=== PATIENT | female | born 2000 | race Caucasian/White ===

== ENCOUNTER 2021-10-06 16:11 | Emergency (ER) | payer OTHER, SELFPAY ==
[2021-10-06 16:13] VITALS: BP 134/89; PULSE 85; RESP 14; TEMP 36.6; O2SAT 98; BMI 25.2
--- NOTE | 2021-10-06 16:43 | EX.ED.VIS.HA ---
HPI History of Present Illness Chief Complaint: Headache Informant: patient Onset/Context/Timing Onset: Yesterday Context: Sudden Timing: Continuous Quality -Headache: Positive for Throbbing and Burning Location: Right occipital/parietal area Worsened by: Bending forward and turning head Relieved by: Sitting Associated Symptoms/Injury Associated Symptoms: Positive for Nausea; Negative for Fever, Vomiting, Sore Throat, Sinus Pressure, Numbness, Tingling, Preceding Aura, Visual Changes, Blurred Vision, Photophobia and Visual Loss Injury - VU: Negative for Direct Trauma Narrative Narrative: Patient presents with a headache that began yesterday. Patient states she was at a track meet throwing javelin when her headache began. Patient states it began right after she threw the javelin. Patient states it began rather suddenly. Patient states it is over the right occipital area. Patient describes the pain as throbbing and burning. Patient states it is worse whenever she bends forward and turns her head to the side. Patient states it is better with sitting. Patient admits to a couple episodes of very mild nausea. Patient denies any vomiting. Patient denies any fevers or chills. Patient denies any visual changes or scotoma. Patient denies any preceding auras. PFSH PFSH Medical History no medical history no medical history Home Medications cetirizine [Zyrtec] 5 mg PO DAILY 10/06/21 [History Last Taken Unknown] escitalopram oxalate [Lexapro] 20 mg PO DAILY 10/06/21 [History Last Taken Unknown] norgestimate-ethinyl estradiol [Ortho Tri-Cyclen (21)] 1 tab PO DAILY 10/06/21 [History Last Taken Unknown] Allergy/AdvReac Type Severity Reaction Status Date / Time No Known Allergies Allergy Verified 10/06/21 16:14 Social History Smoking Status: Never smoker ROS ROS ED Constitutional Constitutional ED: Denies chills or fever(s) Eyes Eyes: Denies blurry vision or change in vision ENT ENT ED: Denies rhinorrhea or sore throat Cardiovascular Cardiovascular: Denies chest pain or palpitations Respiratory/Chest Respiratory/Chest: Denies cough or dyspnea Gastrointestinal Gastrointestinal: Denies nausea or vomiting Genitourinary Genitourinary ED: Denies dysuria or hematuria Musculoskeletal Musculoskeletal: Denies back pain or neck pain Integumentary Denies abscess or rash Neurologic Neurologic: Reports headache(s); Denies weakness Allergic/Immunologic Allergic/Immunologic ED: Denies mouth swelling or urticaria EXAM Physical Exam Const Vital Signs: 10/06/21 16:13 Temperature 97.8 F Temperature Source Temporal Pulse Rate 85 Respiratory Rate 14 Blood Pressure 134/89 H Blood Pressure Mean 104 Pulse Ox 98 Oxygen Delivery Method Room Air Positive well nourished and well developed General Appearance ED: well developed and NAD HEENT Reports normocephalic and moist mucous membranes atraumatic Neck supple, no meningeal signs and no JVD Resp normal respiratory effort and clear to auscultation bilaterally Cardio regular rate and regular rhythm GI non-tender Palpation: soft Neuro oriented x3, CN's II-XII intact bilaterally and no sensory deficits noted Sensorium / Orientation: awake and alert Speech: speech normal Motor Exam: strength 5/5 throughout Psych mental status grossly normal MDM MDM MDM Narrative Medical decision making narrative: Patient was given IV fluids Reglan, and Benadryl. CT scan of the brain was obtained. There is no acute intracranial abnormality. This was interpreted by the radiologist and reviewed by myself. Patient was still having some persistent headache. Since her pain began rather suddenly while she was exerting herself, CTA of the head was obtained. There is no acute abnormality noted. There is no aneurysm noted. There is no subdural or subarachnoid hemorrhage. This was interpreted by the radiologist and reviewed by myself. Patient was given a dose of Toradol here. Patient is feeling better. Patient wants to go home. Patient was instructed to rest in a dark quiet room. Patient was instructed to follow-up with her primary care physician in 5 to 7 days. Patient understood and was agreeable with the plan. All questions were answered. Radiography Diagnostic Testing: Clinical Impression(s) from Imaging Studies Brain CT 10/06/21 16:49 IMPRESSION: 1. Normal examination. 2. No evidence of subarachnoid hemorrhage. 3. No subdural, epidural, intracerebral hemorrhage, hematomas or contusion. 4. No evidence of ischemic or hemorrhagic infarct. 5. Normal calvarium without linear or depressed skull fractures. 6. Normal paranasal sinuses; no acute or chronic sinusitis. Electronically Signed: Ricardo Govea MD at 19:09 EDT , Head CTA 10/06/21 19:37 IMPRESSION: 1. Normal examination. 2. No subdural, epidural, or intracerebral hematoma, hemorrhage or contusion. No subarachnoid hemorrhage. 3. No intracranial neoplasms. 4. Normal calvarium and paranasal sinuses. 5. [place] is intact and is without evidence of an aneurysm. 6. No evidence of other intracranial aneurysms or vascular malformations. 7. Normal distribution of the anterior, middle, and posterior cerebral arteries. 8. No evidence of an intracranial arteritis or vasculitis. 9. No sites of intracranial arterial structures. Electronically Signed: Ricardo Govea MD at 21:27 EDT , Discharge Plan Triage Chief Complaint: Headache ED Provider: Ji Masters Dx/Rx/DC Orders Clinical Impression: Headache Instructions: ED Headache Unspecified Prescriptions: No Action cetirizine [Zyrtec] 5 mg Tablet 5 mg PO DAILY RF: 0 escitalopram oxalate [Lexapro] 20 mg Tablet 20 mg PO DAILY RF: 0 Ortho Tri-Cyclen (21) 0.18/0.215/0.25 mg-35 mcg (21) Tablet 1 tab PO DAILY RF: 0 Referrals: FLORIN CORONA [Other] - 5-7 Days Disposition Disposition: Home, Self Care
--- NOTE | 2021-10-06 16:49 | CT_ITS ---
STUDY: CT BRAIN WITHOUT CONTRAST ENHANCEMENT OF 1724 HOURS ON 10/06/2021 REASON FOR EXAM: 21-year-old female with headache. RADIATION DOSAGE (If Supplied By Facility): CTDIvol = ( 44.99 ) mGy, DLP = ( 832.67 ) mGycm TECHNIQUE: Transaxial CT imaging of the brain was performed without administration of intravenous contrast material. Individualized dose optimization techniques were used for this CT. COMPARISON: No relevant priors. FINDINGS: Normal soft tissue structures. Normal calvarium. Normal size ventricles and extra-axial spaces for the patient''s age. Normal white matter tracts of the cerebral hemispheres. Normal basal ganglia and thalami. Normal brainstem. Normal cerebellum. No ischemic or hemorrhagic cerebral infarction. There is no intracranial hemorrhage; no subarachnoid hemorrhage.. There are no findings of an acute ischemic infarction. No subdural, epidural, intracerebral hematoma, hemorrhage or contusion. Normal visualized paranasal sinuses. No evidence of an acute or chronic sinusitis. CT/Brain/Head without Contrast IMPRESSION: 1. Normal examination. 2. No evidence of subarachnoid hemorrhage. 3. No subdural, epidural, intracerebral hemorrhage, hematomas or contusion. 4. No evidence of ischemic or hemorrhagic infarct. 5. Normal calvarium without linear or depressed skull fractures. 6. Normal paranasal sinuses; no acute or chronic sinusitis. Electronically Signed: Ricardo Govea MD at 19:09 EDT ,
[2021-10-06] MEDS: 0.9% Normal Saline 1,000 ML 999 ML IV (17:12)
[2021-10-06] MEDS: Metoclopramide 10 MG/2 ML Vial IV (17:12)
[2021-10-06] MEDS: DiphenhydrAMINE 50 MG/ML Syringe 25 MG IV (17:12)
--- NOTE | 2021-10-06 19:37 | CT_ITS ---
STUDY: CT BRAIN WITHOUT AND WITH CONTRAST ENHANCEMENT OF 1953 HOURS ON 10/06/2021 REASON FOR EXAM: 21-year-old female with headache. RADIATION DOSAGE (If Supplied By Facility): CTDIvol = ( 21.49 ) mGy, DLP = ( 419.23 ) mGycm TECHNIQUE: Transaxial CT imaging of the brain was performed pre and post contrast administration. The examination was performed with intravenous administration of IV 100mL [id number]. Individualized dose optimization techniques were used for this CT. COMPARISON: None. FINDINGS: Non-contrast CT of the brain: There is a normal ventricular system without a midline shift. There is no evidence intracranial neoplasms. There is no evidence of subdural, epidural, intracerebral hematoma, hemorrhage or contusion. There is no evidence of ischemic or hemorrhagic cerebral infarction. No additional osseous calvarium without linear or depressed skull fractures. There are are normal paranasal sinuses. CT angiography of the brain: [place] is intact and without evidence of an aneurysm. There is no evidence of intracranial vascular malformations. The distribution of the anterior, middle, and posterior cerebral arteries is normal. There is no evidence of intracranial atherosclerotic change. There are no findings of an arteritis or vasculitis. There are no findings of sites of intracranial arterial obstruction. CT/CTA Head W/WO Contrast IMPRESSION: 1. Normal examination. 2. No subdural, epidural, or intracerebral hematoma, hemorrhage or contusion. No subarachnoid hemorrhage. 3. No intracranial neoplasms. 4. Normal calvarium and paranasal sinuses. 5. [place] of [place] is intact and is without evidence of an aneurysm. 6. No evidence of other intracranial aneurysms or vascular malformations. 7. Normal distribution of the anterior, middle, and posterior cerebral arteries. 8. No evidence of an intracranial arteritis or vasculitis. 9. No sites of intracranial arterial structures. Electronically Signed: Ricardo Govea MD at 21:27 EDT ,
[2021-10-06] MEDS: Ketorolac 30 MG/ML Syringe IV (21:58)
[2021-10-06 22:00] VITALS: BP 111/69; PULSE 65; RESP 16; TEMP 36.5; O2SAT 98
[2021-10-06 22:17] VITALS: BP 114/66; PULSE 78; RESP 16; O2SAT 98
== END 2021-10-06 22:18 | disposition home or self-care (01) ==
PROVIDERS: Emergency Provider Emergency Medicine; Visit Provider Emergency Medicine
DX: R51.9 Headache, unspecified (principal); R11.0 Nausea
CPT/HCPCS: 70450; 70496; 96361; 96374; 96375; 99283; J7030; Q9967; A4216